=== PATIENT | male | born 1995 | race Caucasian/White ===

== ENCOUNTER → 2018-11-14 | Emergency (ER) | payer SELFPAY ==
[~2018-11-14] VITALS: Ht 172.7 cm; Wt 57.2 kg
[~2018-11-14] MED LIST: IV NS 0.9% 1,000 ML BAG IV ONE; NALOXONE HCL 0.4 MG/ML AMPUL IV ONE; NALOXONE HCL 0.4 MG/ML AMPUL ONE
--- NOTE | 2018-11-14 14:02 | NUR ---
PT BROUGHT IN FROM STREET BY [facility] FOR ALTERED MENTAL STATUS. POCT BLOOD SUGAR 87 PT GIVEN NARCAN AND 1 LITER FLUID BOLUS. PT NON VERBAL OR RESPONSIVE JUST STARES INTO SPACE. LABS DRAWN ADN PT HAS 20G PIV IN LEFT AC PLACED BY [employer] PT ON MONITOR EKG DONE WILL CONTINUE TO MONITOR.
[2018-11-14 14:10] LABS: BASOPHILS % (AUTO) 0.7 % (0.0-2.0); EOSINOPHILS % (AUTO) 2.7 % (0.0-6.0); HEMATOCRIT 45 % (39-51); HEMOGLOBIN 15.2 g/dL (13.5-17.5); LYMPHOCYTES # (AUTO) 1.9 /CMM (0.8-4.8); LYMPHOCYTES % (AUTO) 33.4 % (20.0-44.0); MEAN CORPUSCULAR HGB CONC 34 g/dl (31.0-36.0); MEAN CORPUSCULAR VOLUME 87 fL (80-96); MONOCYTES # (AUTO) 0.5 /CMM (0.1-1.30); MONOCYTES % (AUTO) 8.3 % (2.0-12.0); NEUTROPHILS # (AUTO) 3.2 /CMM (1.8-8.9); NEUTROPHILS % (AUTO) 54.9 % (43.0-81.0); PLATELET COUNT (AUTO) 199 /CMM (150-450); RED BLOOD CELL COUNT(AUTO) 5.12 MIL/uL (4.5-6.0); WHITE BLOOD COUNT (AUTO) 5.8 K/uL (4.3-11.0)
[2018-11-14 14:23] LABS: CALCIUM, SERUM 9.3 mg/dL (8.5-10.1); CARBON DIOXIDE 25 mmol/L (21-32); CHLORIDE 105 mmol/L (98-107); CREATININE 0.9 mg/dL (0.6-1.3); GLUCOSE 102 mg/dL (74-106); SODIUM SERUM 141 mmol/L (136-145); UREA NITROGEN, BLOOD 11 mg/dL (7-18)
[2018-11-14 14:38] LABS: ALANINE AMINOTRANSFERASE 22 U/L (12-78); ALBUMIN 4.3 g/dL (3.4-5.0); ALKALINE PHOSPHATASE 55 U/L (46-116); ASPARTATE AMINOTRANSFERASE 19 U/L (15-37); BILIRUBIN,DIRECT 0.3 mg/dL (0.0-0.2); BILIRUBIN,TOTAL 1.8 mg/dL (0.2-1.0); TOTAL PROTEIN, SERUM 6.8 g/dL (6.4-8.2)
[2018-11-14 14:39] LABS: ACETAMINOPHEN < 10 ug/ml (10-30); ALCOHOL, BLOOD < 3 mg/dL (0-0); SALICYLATE < 2.8 mg/dL (2.8-20.0)
--- NOTE | 2018-11-14 14:53 | NUR ---
PT MOVED TO ER BED #11 VITAL SIGNS STABLE PT REMAINS NON-VERBAL PT NOTED TO HAVE SCARCHES OVER RIGHT EYE
--- NOTE | 2018-11-14 16:04 | NUR ---
PT ALERT SPEAKING WHEN ASKED QUESTIONS P ABLE TO WALK WITH STEADY GAIT AND GO TO BATH ROOM.MD AWARE
[2018-11-14 16:38] VITALS: BP 122/91
== END | disposition home or self-care (01) ==
LOC: ER 13:38
DX: R41.82 Altered mental status, unspecified (principal); S02.31XA Fracture of orbital floor, right side, initial encounter for closed fracture; S20.319A Abrasion of unspecified front wall of thorax, initial encounter; Z59.0 Homelessness; X58.XXXA Exposure to other specified factors, initial encounter; Y93.89 Activity, other specified; Y92.89 Other specified places as the place of occurrence of the external cause; Y99.8 Other external cause status
CPT/HCPCS: 36415; 70450-TC; 70480-TC; 71045-TC; 72125-TC; 80048-TC; 80076-TC; 82962-TC; 83605-TC; 84484-TC; 85025-TC; 85730-TC; A4606; G0480; J2310; J7030; Z7610